=== PATIENT | female | born 1980 | race Caucasian/White ===

== ENCOUNTER 2021-01-24 09:55 | Emergency (ER) | payer SELFPAY ==
[~2021-01-24] VITALS: Ht 167.6 cm; Wt 100.0 kg
[2021-01-24 11:22] LABS: BASOPHILS % 0.9 % (0.0-2.0); EOSINOPHILS % 0.6 % (0.0-5.0); HEMATOCRIT. 32.4 % (36.0-48.0); HEMOGLOBIN. 10.2 g/dL (12.0-16.0); MEAN CORPUSCULAR HEMOGLOBIN 23.6 pg (28.0-32.0); MEAN CORPUSCULAR VOLUME 75.2 fL (81.0-99.0); MEAN PLATELET VOLUME 8.3 fl (7.4-10.4); NEUTROPHILS % 69.5 % (40.0-76.0); PLATELET 482 x1000/uL (130-400); RED BLOOD CELL COUNT 4.31 mill/uL (4.2-5.4); RED CELL DISTRIBUTION WIDTH 16.7 % (11.6-14.6)
[2021-01-24 11:26] LABS: CHLORIDE 108 mEq/L (98-107)
[2021-01-24 11:30] LABS: ETHANOL BLOOD < 10 mg/dL
[2021-01-24] MEDS ORDERED: OLANZAPINE 10 MG/VIAL IM ONE (11:30)
[2021-01-24 11:36] LABS: HCG SCREEN NEGATIVE
[2021-01-24 11:49] VITALS: BP 123/86
== END 2021-01-24 12:19 | disposition home or self-care (01) ==
LOC: ER 09:55
DX: F29 Unspecified psychosis not due to a substance or known physiological condition (principal)
CPT/HCPCS: 36415; 80053; 80320; 81025; 84703; 85025; 96372; 99283; J3490; Z7610; G0480